=== PATIENT | female | born 1960 | race Caucasian/White ===

== ENCOUNTER 2017-02-11 17:51 | Emergency (ER) | payer SELFPAY ==
[~2017-02-11] VITALS: Ht 175.3 cm; Wt 168.1 kg
[~2017-02-11 17:51] MED LIST: ADVAIR 500/501 DISK IH; ALLOPURINOL100 MG PO; CELEXA40 MG PO; CIPRO250 MG PO; CLINDAMYCIN HC300 MG PO; HYDROCHLOROTHIA25 MG PO; IRON325 MG PO; LABETALOL HCL100 MG PO; MICARDIS80 MG PO; NOHOMEMEDS; NORCO 5/3251 TABLET PO; PERCOCET 5/31 TABLET PO; PREDNISONE20 MG PO; PREDNISONE50 MG PO; PROTONIX40 MG PO; SIMVASTATIN40 MG PO; SPIRIVA1 INHALATI IH; THEOCHRON300 MG PO; TYLENOL EXTRA500 MG PO; TYLENOL WITH C1 EACH PO; VENTOLIN HFA18 GM IH; ZYRTEC10 M3 PO
[2017-02-11 18:49] LABS: HEMATOCRIT 39.9 % (36.0-46.0); MCH 28.8 PG (29.0-34.0); MCHC 31.1 G/DL (30.0-36.0); MCV 92.8 FL (83-99); MEAN PLAT.VOLUME 10.6 uM^3 (9.5-12.4); PLATELET COUNT 307 K/uL (156-360); RBC DIS.WIDTH-CV 15.4 % (11.8-14.6); RBC DIS.WIDTH-SD 52.7 % (39-53); WHITE BLOOD COUNT 11.7 K/uL (4.1-10.2)
[2017-02-11 18:59] LABS: CHLORIDE 108 mEq/L (99-109); POTASSIUM 4.1 mEq/L (3.7-5.4); SODIUM 142 mEq/L (136-147)
[2017-02-11 19:01] LABS: GLUCOSE 116 mg/dL (70-99)
[2017-02-11 19:02] LABS: ANION GAP 9 MEQ/L (2-14)
[2017-02-11 19:05] LABS: GFR ESTIMATE (CALCULATED) > 59 mL/min/
[2017-02-11 19:06] LABS: UREA NITROGEN (BUN) 16 mg/dL (9-23)
[2017-02-11] MEDS ORDERED: CLEOCIN300 MG PO (19:41)
[2017-02-11 21:12] VITALS: BP 142/92
== END 2017-02-11 21:13 | disposition home or self-care (01) ==
LOC: EME 17:51
PROVIDERS: Nurse Practitioner Family
DX: L03.115 Cellulitis of right lower limb (principal); L03.116 Cellulitis of left lower limb; I10 Essential (primary) hypertension; Z87.891 Personal history of nicotine dependence
CPT/HCPCS: 71020; 80048; 83880; 85027; 99281; 99285

== ENCOUNTER 2017-03-29 14:58 | Emergency (ER) | payer SELFPAY ==
[~2017-03-29] VITALS: Ht 170.2 cm; Wt 166.8 kg
[~2017-03-29 14:58] MED LIST changes: +CLEOCIN300 MG PO
[2017-03-29 15:53] LABS: HEMATOCRIT 39.9 % (36.0-46.0); MCH 28.7 PG (29.0-34.0); MCHC 31.6 G/DL (30.0-36.0); MCV 90.9 FL (83-99); MEAN PLAT.VOLUME 11.1 uM^3 (9.5-12.4); PLATELET COUNT 298 K/uL (156-360); RBC DIS.WIDTH-CV 15.6 % (11.8-14.6); RBC DIS.WIDTH-SD 51.6 % (39-53); RED BLOOD COUNT 4.39 M/uL (3.80-5.20); WHITE BLOOD COUNT 10.7 K/uL (4.1-10.2)
[2017-03-29 16:07] LABS: CHLORIDE 99 mEq/L (99-109); POTASSIUM 3.5 mEq/L (3.7-5.4); SODIUM 139 mEq/L (136-147)
[2017-03-29 16:08] LABS: GLUCOSE 103 mg/dL (70-99)
[2017-03-29 16:10] LABS: ANION GAP 14 MEQ/L (2-14)
[2017-03-29 16:12] LABS: GFR ESTIMATE (CALCULATED) 49 mL/min/
[2017-03-29 16:13] LABS: UREA NITROGEN (BUN) 20 mg/dL (9-23)
[2017-03-29] MEDS ORDERED: VENTOLIN HFA18 GM IH (16:44)
[2017-03-29] MEDS ORDERED: PREDNISONE20 MG PO (16:44)
[2017-03-29] MEDS ORDERED: LASIX40 MG PO (16:44)
[2017-03-29] MEDS ORDERED: K-DUR20 MEQ PO (16:44)
[2017-03-29 16:46] LABS: TROP-I INTERPRETATION NEGATIVE; TROPONIN-I < 0.01 ng/mL (0.0-0.30)
[2017-03-29 17:52] VITALS: BP 147/68
== END 2017-03-29 17:54 | disposition home or self-care (01) ==
LOC: EME 14:58
PROVIDERS: Physician Assistant
DX: J44.9 Chronic obstructive pulmonary disease, unspecified (principal); R60.9 Edema, unspecified; I10 Essential (primary) hypertension; Z87.891 Personal history of nicotine dependence
CPT/HCPCS: 71020; 80048; 81003; 84484; 85027; 93005; 99281; 99284; J1940

== ENCOUNTER 2017-09-15 19:24 | Emergency (ER) | payer OTHER ==
[~2017-09-15] VITALS: Ht 172.7 cm; Wt 168.4 kg
[~2017-09-15 19:24] MED LIST changes: +K-DUR20 MEQ PO; +LASIX40 MG PO
[2017-09-15] MEDS ORDERED: PERCOCET 5/31 TABLET PO (20:22)
[2017-09-15] MEDS ORDERED: KEFLEX500 MG PO (20:22)
[2017-09-15 21:12] VITALS: BP 173/85
== END 2017-09-15 21:12 | disposition home or self-care (01) ==
LOC: EME 19:24
DX: L03.116 Cellulitis of left lower limb (principal); L03.115 Cellulitis of right lower limb; L97.929 Non-pressure chronic ulcer of unspecified part of left lower leg with unspecified severity; L97.919 Non-pressure chronic ulcer of unspecified part of right lower leg with unspecified severity; E11.622 Type 2 diabetes mellitus with other skin ulcer; I10 Essential (primary) hypertension; Z85.3 Personal history of malignant neoplasm of breast; Z85.41 Personal history of malignant neoplasm of cervix uteri; Z87.891 Personal history of nicotine dependence; Z88.1 Allergy status to other antibiotic agents
CPT/HCPCS: 99281; 99284

== ENCOUNTER → 2017-09-28 | Outpatient (CLI) | payer OTHER ==
[~2017-09-28] MED LIST changes: +KEFLEX500 MG PO
== END | disposition home or self-care (01) ==
LOC: RAD 10:05
DX: I89.0 Lymphedema, not elsewhere classified (principal); R29.898 Other symptoms and signs involving the musculoskeletal system
CPT/HCPCS: 93970

== ENCOUNTER 2017-10-27 17:28 | Emergency (ER) | payer OTHER ==
[~2017-10-27] VITALS: Ht 172.7 cm; Wt 175.0 kg
[2017-10-27] MEDS ORDERED: NEURONTIN300 MG PO (18:46)
[2017-10-27 19:13] VITALS: BP 157/97
== END 2017-10-27 19:17 | disposition home or self-care (01) ==
LOC: EME 17:28
DX: E11.40 Type 2 diabetes mellitus with diabetic neuropathy, unspecified (principal); M54.5 Low back pain; R60.0 Localized edema; I10 Essential (primary) hypertension; Z85.3 Personal history of malignant neoplasm of breast; Z85.41 Personal history of malignant neoplasm of cervix uteri; Z87.891 Personal history of nicotine dependence
CPT/HCPCS: 71020; 80048; 83880; 85025; 99281; 99283

== ENCOUNTER 2017-11-06 17:42 | Emergency (ER) | payer SELFPAY ==
[~2017-11-06] VITALS: Ht 172.7 cm; Wt 169.7 kg
[~2017-11-06 17:42] MED LIST changes: +NEURONTIN300 MG PO
[2017-11-06 18:40] LABS: HEMATOCRIT 39.8 % (36.0-46.0); HEMOGLOBIN 12.7 G/DL (11.9-15.5); MCH 29.2 PG (29.0-34.0); MCHC 31.9 G/DL (30.0-36.0); MCV 91.5 FL (83-99); PLATELET COUNT 324 K/uL (156-360); RBC DIS.WIDTH-CV 15.7 % (11.8-14.6); RBC DIS.WIDTH-SD 51.9 % (39-53); RED BLOOD COUNT 4.35 M/uL (3.80-5.20); WHITE BLOOD COUNT 12.2 K/uL (4.1-10.2)
[2017-11-06 18:48] LABS: ALBUMIN 4.5 g/dL (3.2-4.8)
[2017-11-06 18:49] LABS: CHLORIDE 99 mEq/L (99-109); POTASSIUM 3.3 mEq/L (3.7-5.4); SODIUM 141 mEq/L (136-147)
[2017-11-06 18:51] LABS: GLUCOSE 95 mg/dL (70-99); TOTAL PROTEIN 7.7 g/dL (6.4-8.3)
[2017-11-06 18:53] LABS: TOTAL BILIRUBIN 0.8 mg/dL (0.0-1.0)
[2017-11-06 18:54] LABS: ALKALINE PHOSPHATASE 183 IU/L (3-129)
[2017-11-06 18:55] LABS: CREATININE 1.1 mg/dL (0.6-1.3); GFR ESTIMATE (CALCULATED) 54 mL/min/
[2017-11-06 18:56] LABS: AST (GOT) 20 IU/L (2-34); UREA NITROGEN (BUN) 21 mg/dL (9-23)
[2017-11-06 18:57] LABS: ALT (GPT) 17 IU/L (3-49)
[2017-11-06 19:59] LABS: APPEARANCE CLEAR ((CLEAR)); BILIRUBIN NEGATIVE; BLOOD NEGATIVE; COLOR YELLOW ((YELLOW)); GLUCOSE (STRIP) NEGATIVE; KETONES NEGATIVE; LEUKOCYTES NEGATIVE; NITRITE NEGATIVE; PROTEIN (STRIP) NEGATIVE; SPECIFIC GRAVITY 1.016 (1.000-1.030); UCUL ADDED? NO
[2017-11-06 20:25] LABS: CREATINE KINASE 62 IU/L (1-294)
[2017-11-06 21:01] LABS: LIPASE 30 U/L (1.0-51.0)
[2017-11-07] MEDS ORDERED: MOTRIN800 MG PO (00:06)
[2017-11-07] MEDS ORDERED: NORCO 7.5/321 TABLET PO (00:06)
[2017-11-07] MEDS ORDERED: MIRALAX255 GM PO (00:06)
[2017-11-07 01:12] VITALS: BP 160/81
== END 2017-11-07 01:12 | disposition home or self-care (01) ==
LOC: EME 17:42 → RME 17:42
DX: R10.12 Left upper quadrant pain (principal); I10 Essential (primary) hypertension; Z85.3 Personal history of malignant neoplasm of breast; Z85.41 Personal history of malignant neoplasm of cervix uteri; Z87.891 Personal history of nicotine dependence; Z88.1 Allergy status to other antibiotic agents
CPT/HCPCS: 71275; 74177; 80053; 81003; 82550; 83605; 83690; 85027; 99281; 99285; J3010; J7030

== ENCOUNTER 2018-02-05 19:37 | Emergency (ER) | payer SELFPAY ==
[~2018-02-05] VITALS: Ht 172.7 cm; Wt 170.4 kg
[~2018-02-05 19:37] MED LIST changes: +MIRALAX255 GM PO; +MOTRIN800 MG PO; +NORCO 7.5/321 TABLET PO
[2018-02-05 21:27] LABS: HEMATOCRIT 41.2 % (36.0-46.0); HEMOGLOBIN 13.3 G/DL (11.9-15.5); MCH 29.7 PG (29.0-34.0); MCHC 32.3 G/DL (30.0-36.0); PLATELET COUNT 324 K/uL (156-360); RBC DIS.WIDTH-CV 14.6 % (11.8-14.6); RBC DIS.WIDTH-SD 49.6 % (39-53); RED BLOOD COUNT 4.48 M/uL (3.80-5.20); WHITE BLOOD COUNT 11.6 K/uL (4.1-10.2)
[2018-02-05 21:35] LABS: CHLORIDE 105 mEq/L (99-109); SODIUM 146 mEq/L (136-147)
[2018-02-05 21:37] LABS: GLUCOSE 108 mg/dL (70-99)
[2018-02-05 21:41] LABS: CREATININE 1.2 mg/dL (0.6-1.3); GFR ESTIMATE (CALCULATED) 49 mL/min/
[2018-02-05 21:42] LABS: UREA NITROGEN (BUN) 19 mg/dL (9-23)
[2018-02-05] MEDS ORDERED: MYCELEX10 MG PO (22:37)
[2018-02-05] MEDS ORDERED: KEFLEX500 MG PO (22:37)
[2018-02-05 23:57] VITALS: BP 170/89
== END 2018-02-05 23:58 | disposition home or self-care (01) ==
LOC: EME 19:37
PROVIDERS: Physician Assistant Medical
DX: L03.115 Cellulitis of right lower limb (principal); L03.116 Cellulitis of left lower limb; I51.7 Cardiomegaly; E11.9 Type 2 diabetes mellitus without complications; I10 Essential (primary) hypertension; M10.9 Gout, unspecified; R56.9 Unspecified convulsions; Z87.891 Personal history of nicotine dependence; Z85.41 Personal history of malignant neoplasm of cervix uteri; Z85.3 Personal history of malignant neoplasm of breast; Z88.1 Allergy status to other antibiotic agents
CPT/HCPCS: 71046; 80048; 83880; 85027; 99281; 99285; J0696

== ENCOUNTER 2018-02-09 01:35 | Emergency (ER) | payer OTHER ==
[~2018-02-09] VITALS: Ht 172.7 cm; Wt 178.6 kg
[~2018-02-09 01:35] MED LIST changes: +MYCELEX10 MG PO
[2018-02-09 02:03] LABS: HEMATOCRIT 36.1 % (36.0-46.0); HEMOGLOBIN 11.7 G/DL (11.9-15.5); MCH 29.8 PG (29.0-34.0); MCHC 32.4 G/DL (30.0-36.0); MCV 92.1 FL (83-99); PLATELET COUNT 283 K/uL (156-360); RBC DIS.WIDTH-CV 14.8 % (11.8-14.6); RBC DIS.WIDTH-SD 49.8 % (39-53); RED BLOOD COUNT 3.92 M/uL (3.80-5.20); WHITE BLOOD COUNT 10.2 K/uL (4.1-10.2)
[2018-02-09 02:14] LABS: CHLORIDE 106 mEq/L (99-109); POTASSIUM 3.4 mEq/L (3.7-5.4); SODIUM 144 mEq/L (136-147)
[2018-02-09 02:16] LABS: GLUCOSE 135 mg/dL (70-99)
[2018-02-09 02:19] LABS: GFR ESTIMATE (CALCULATED) > 59 mL/min/
[2018-02-09 02:20] LABS: UREA NITROGEN (BUN) 17 mg/dL (9-23)
[2018-02-09 02:28] LABS: TROP-I INTERPRETATION NEGATIVE; TROPONIN-I 0.01 ng/mL (0.0-0.30)
[2018-02-09 03:14] LABS: APPEARANCE CLEAR ((CLEAR)); BILIRUBIN NEGATIVE; BLOOD NEGATIVE; COLOR YELLOW ((YELLOW)); GLUCOSE (STRIP) NEGATIVE; KETONES NEGATIVE; LEUKOCYTES NEGATIVE; NITRITE NEGATIVE; PROTEIN (STRIP) NEGATIVE; SPECIFIC GRAVITY 1.027 (1.000-1.030); UCUL ADDED? NO; UROBILINOGEN 0.2 MG/DL (0.2-1.0)
[2018-02-09 06:10] VITALS: BP 107/73
== END 2018-02-09 06:10 | disposition home or self-care (01) ==
LOC: EME 01:35
PROVIDERS: Emergency Medicine
DX: R06.00 Dyspnea, unspecified (principal); R60.0 Localized edema; I10 Essential (primary) hypertension; E66.01 Morbid (severe) obesity due to excess calories; Z85.41 Personal history of malignant neoplasm of cervix uteri; Z85.3 Personal history of malignant neoplasm of breast; Z87.891 Personal history of nicotine dependence; Z68.43 Body mass index [BMI] 50.0-59.9, adult
CPT/HCPCS: 80048; 81003; 83880; 84484; 85027; 93005; 99281; 99285

== ENCOUNTER → 2018-06-27 | Outpatient (CLI) | payer OTHER | END | disposition home or self-care (01) | LOC: RAD 13:00 | DX: M79.89 Other specified soft tissue disorders (principal) | CPT/HCPCS: 93971 ==